=== PATIENT | male | born 1990 | race Two or more races ===

== ENCOUNTER 2021-11-18 04:16 | Emergency (ER) | payer OTHER ==
[2021-11-18 05:33] LABS: BASOPHIL 0.7 % (0-2); HGB 16.7 g/dl (13.2-18.0); LYMPHOCYTE 40.6 % (15-48); MCH 28.9 pg (25.0-31.0); MCHC 34.8 g/dL (32.0-36.0); MPV 9.6 fL (6.0-9.5); NEUTROPHIL 50.5 % (41-80); NRBC 0; PLT 317 K/uL (150-400); RBC 5.78 M/uL (4.70-6.00); RDW 12.7 % (11.5-14.0); WBC 8.9 K/uL (4.0-10.5)
[2021-11-18 05:41] LABS: BILIRUBIN NEGATIVE (NEGATIVE); BLOOD NEGATIVE Ery/uL (NEGATIVE); CLARITY CLEAR (CLEAR); COLOR YELLOW (YELLOW); GLUCOSE (U) 3+ mg/dL (NORMAL); LEUKOCYTES NEGATIVE Leu/uL (NEGATIVE); NITRITE NEGATIVE (NEGATIVE); PROTEIN NEGATIVE (NEGATIVE); SPECIFIC GRAVITY 1.025 (1.001-1.030); UROBILINOGEN 0.2 mg/dL (0.2-1.0); pH 5.5 (5.0-9.0)
[2021-11-18 05:58] LABS: ALBUMIN 4.1 g/dL (3.4-5.0); BILIRUBIN - TOTAL 0.7 mg/dL (0.2-1.0); BUN/CREAT RATIO (CALC) 14.3 RATIO; CREATININE 0.84 mg/dL (0.67-1.17); POTASSIUM 3.5 mmol/L (3.5-5.1); TOTAL PROTEIN 8.1 g/dL (6.4-8.2)
[2021-11-18] MEDS ORDERED: TRULICITY1.5 MG/0.5 SC (10:27)
[2021-11-18] MEDS ORDERED: HUMALOG100 UNIT/1 SC (10:27)
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
== END 2021-11-18 12:20 | disposition home or self-care (01) ==
LOC: FER 04:16
PROVIDERS: Internal Medicine
DX: E10.65 Type 1 diabetes mellitus with hyperglycemia (principal); E86.0 Dehydration; I10 Essential (primary) hypertension; Z79.4 Long term (current) use of insulin
CPT/HCPCS: 36415; 80053; 81003; 83036; 83690; 84145; 85025; 99284; J7030

== ENCOUNTER 2021-12-10 13:26 | Emergency (ER) | payer OTHER ==
[~2021-12-10 13:26] MED LIST: HUMALOG100 UNIT/1 SC; TRULICITY1.5 MG/0.5 SC
[2021-12-10] MEDS ORDERED: DICLOFENAC SODI75 MG PO (16:38)
[2021-12-10] MEDS ORDERED: FLEXERIL5 MG PO (16:41)
== END 2021-12-10 16:54 | disposition home or self-care (01) ==
LOC: FER 13:26
DX: G89.29 Other chronic pain (principal); M54.50 Low back pain, unspecified; I10 Essential (primary) hypertension; E10.9 Type 1 diabetes mellitus without complications; Z79.4 Long term (current) use of insulin
CPT/HCPCS: J1885